=== PATIENT | male | born 1945 ===

== ENCOUNTER 2019-01-14 03:50 | Outpatient (CLI) | payer MEDICARE | END 2019-01-14 23:59 | disposition home or self-care (01) | LOC: DIABETIC 03:50 | PROVIDERS: ATTEND Specialist | DX: E11.9 Type 2 diabetes mellitus without complications (principal); Z79.899 Other long term (current) drug therapy | CPT/HCPCS: G0108 ==

== ENCOUNTER 2019-02-25 01:59 | Outpatient (CLI) | payer MEDICARE | END 2019-02-25 23:59 | disposition home or self-care (01) | LOC: DIABETIC 01:59 | PROVIDERS: ATTEND Specialist | DX: E11.9 Type 2 diabetes mellitus without complications (principal); Z79.82 Long term (current) use of aspirin | CPT/HCPCS: G0108 ==